=== PATIENT | male | born 1975 | race Caucasian/White ===

== ENCOUNTER 2018-07-30 13:44 | Inpatient (IN) ==
[2018-07-30] MEDS ORDERED: Morphine Inj 4 MG/ML Vial IV.PUSH ONE (13:56)
[2018-07-30] MEDS ORDERED: Sod Chloride 0.9% Inj 1,000 ML IV.SIG SCH (14:00)
--- NOTE | 2018-07-30 14:22 | ED ---
HPI General Chief Complaint: Fall Stated Complaint: Fall Time Seen by Provider: 07/30/18 13:56 Source: EMS Mode of arrival: EMS Limitations: other (Developmentally challenged.) History of Present Illness HPI Narrative: Patient is a 42-year-old male presenting to the emergency department for evaluation of right lower leg deformity after sustaining a mechanical fall. There is no head injury or loss of consciousness. Patient is developmentally challenged, he is grimacing pain, he states that "it hurts". complaint: fall Onset (ago): hour(s) Fall from: standing Fall witnessed: yes, by living facility staff Place fall occurred: home Loss of consciousness: none Prolonged down time: no Symptoms prior to fall: none Context: tripped/slipped Location of injury: other Location of injury - extremities: Right: lower leg (Obvious deformity.) Severity: severe Related Data Home Medications Medication Instructions Recorded Confirmed carbamazepine 200 mg PO BID 07/30/18 07/30/18 Allergies Allergy/AdvReac Type Severity Reaction Status Date / Time No Known Allergies Allergy Uncoded 08/30/16 10:50 Review of Systems ROS: all other systems reviewed are negative [facility] Medical History Medical History Cognitive developmental delay (Chronic) Medical history unknown (Inactive) Surgical history unknown (Inactive) Social History Social History Substance History: No History of Abuse Smoking Status: Never smoker How Often Do You Have a Drink Containing Alcohol: Never Recent Travel in [facility] within the Last 8 Weeks: No Recent Out of Country Travel within the Last 8 Weeks: No Immunization History Tetanus Immunization: Unsure Exam Narrative Exam Narrative: GENERAL: Well-developed, well-nourished, alert male. Appears uncomfortable, in no acute distress. SKIN: Focused skin assessment warm/dry. HEAD: Atraumatic. Normocephalic. EYES: Pupils equal and round. No scleral icterus. No injection or drainage. ENT: No nasal bleeding or discharge. Mucous membranes pink and moist. NECK: Trachea midline. No JVD. CARDIOVASCULAR: Regular rate and rhythm. No murmur appreciated. RESPIRATORY: No accessory muscle use. Clear to auscultation. Breath sounds equal bilaterally. GASTROINTESTINAL: Abdomen soft, non-tender, nondistended. Hepatic and splenic margins not palpable. MUSCULOSKELETAL: Obvious deformity to right lower leg just proximal to the ankle. Mild ecchymosis and edema noted. 2+ dorsalis pedal pulse. Brisk less than 3 second capillary refill. NEUROLOGICAL: Awake and alert. No obvious cranial nerve deficits. Motor grossly within normal limits. Normal speech. PSYCHIATRIC: Appropriate mood and affect; insight and judgment normal. Course Initial Documented Vital Signs Temperature 98.3 F 07/30/18 13:51 Pulse Rate 94 H 07/30/18 13:51 Respiratory Rate 20 07/30/18 13:51 Blood Pressure 161/84 H 07/30/18 13:51 Pulse Oximetry 99 07/30/18 13:51 Last Documented Vital Signs Temperature 98.3 F 07/30/18 13:51 Pulse Rate 94 H 07/30/18 13:51 Respiratory Rate 20 07/30/18 13:51 Blood Pressure 161/84 H 07/30/18 13:51 Pulse Oximetry 99 07/30/18 13:51 Medical Decision Making MDM Narrative Medical decision making narrative: Patient is a 42-year-old male presenting for evaluation of a deformity to his right lower leg after sustaining a mechanical fall. Patient is neurovascularly intact. Patient was given morphine for pain, imaging and labs ordered and pending. IV access was established, patient was placed on telemetry monitoring continuous pulse oximetry. X-ray shows fractures of the tibia and fibula. Discussed with Dr. Almanza recommended patient be placed in a long-leg splint and have extremity elevated. He will be taken to the OR tomorrow by either Dr. Almanza himself or by Dr. Salazar. Mother is at bedside and was advised on findings and plan of care. She is agreeable and her questions were answered. Medical Screen Exam Complete: Yes Emergency Medical Condition: Yes Differential Diagnosis Differential Diagnosis: Fracture versus contusion versus sprain versus strain versus other Lab Data Lab results reviewed: Yes I reviewed the patient's lab results. Result diagrams: 07/30/18 14:05 07/30/18 14:05 Lab Results 07/30/18 07/30/18 07/30/18 Range/Units 14:05 14:05 14:05 WBC 8.6 (4.0-11.0) th/mm3 RBC 4.66 (4.50-5.90) mil/mm3 Hgb 14.7 (13.0-17.0) gm/dL Hct 44.4 (39.0-51.0) % MCV 95.4 (80.0-100.0) fL MCH 31.6 (27.0-34.0) pg MCHC 33.1 (32.0-36.0) % RDW 13.5 (11.6-17.2) % Plt Count 276 (150-450) th/mm3 MPV 8.1 (7.0-11.0) fL Neut % (Auto) 83.5 H (16.0-70.0) % Lymph % (Auto) 9.9 (9.0-44.0) % Weber % (Auto) 6.1 (0.0-8.0) % Eos % (Auto) 0.2 (0.0-4.0) % Baso % (Auto) 0.3 (0.0-2.0) % Neut # (Auto) 7.1 (1.8-7.7) th/mm3 Lymph # (Auto) 0.8 L (1.0-4.8) th/mm3 Weber # (Auto) 0.5 (0.0-0.9) th/mm3 Eos # (Auto) 0.0 (0.0-0.4) th/mm3 Baso # (Auto) 0.0 (0.0-0.2) th/mm3 WBC Differential . Differential Comment Auto diff final PT 10.7 (9.8-11.6) sec INR 1.1 Ratio APTT 23.5 L (24.3-30.1) sec Sodium 142 (136-145) meq/L Potassium 3.8 (3.5-5.1) meq/L Chloride 105 (98-107) meq/L Carbon Dioxide 29.4 (21.0-32.0) meq/L Anion Gap 8 (5-15) meq/L BUN 12 (7-18) mg/dL Creatinine 1.25 (0.60-1.30) mg/dL Estimated GFR 63 L (>89) mL/min Random Glucose 169 H (74-106) mg/dL Calcium 8.5 (8.5-10.1) mg/dL Imaging Data Radiologist's impression: Tibia/Fibula X-Ray 07/30/18 13:56 CONCLUSION: Tibia and fibular fractures are noted. Discharge Plan Physicians Team ED Provider: Elodia Saeed ED Midlevel Provider: Niki Sanchez Primary Care Provider: UNKNOWN, Other Providers: Dio Romo Rxs /Orders / Referrals /Forms Prescriptions: No Action carbamazepine 200 mg Capsule, Er Multiphase 12 Hr 200 mg PO BID RF: 0 Status ED Status: With Doctor
[2018-07-30 14:44] LABS: Baso % (Auto) 0.3 % (0.0-2.0); Eos % (Auto) 0.2 % (0.0-4.0); Hematocrit 44.4 % (39.0-51.0); Hemoglobin 14.7 gm/dL (13.0-17.0); Lymph # (Auto) 0.8 th/mm3 (1.0-4.8); Lymph % (Auto) 9.9 % (9.0-44.0); Mean Corpuscular HGB Conc 33.1 % (32.0-36.0); Mean Corpuscular Hemoglobin 31.6 pg (27.0-34.0); Mean Corpuscular Volume 95.4 fL (80.0-100.0); Mean Platelet Volume 8.1 fL (7.0-11.0); Mono # (Auto) 0.5 th/mm3 (0.0-0.9); Mono % (Auto) 6.1 % (0.0-8.0); Neut # (Auto) 7.1 th/mm3 (1.8-7.7); Neut % (Auto) 83.5 % (16.0-70.0); Platelet Count 276 th/mm3 (150-450); Red Blood Count 4.66 mil/mm3 (4.50-5.90); Red Cell Distribution Width 13.5 % (11.6-17.2); White Blood Count 8.6 th/mm3 (4.0-11.0)
--- NOTE | 2018-07-30 14:44 | XR ---
EXAM DATE: 07/30/2018 2:33 PM EDT AGE/SEX: 42 years / Male INDICATIONS: Right distal tibia pain after trip and fall. CLINICAL DATA: This is the patient's initial encounter. Patient reports that signs and symptoms have been present for 1 day and indicates a pain score of 10/10. MEDICAL/SURGICAL HISTORY: . Previous left foot and ankle fractures. None. COMPARISON: No prior exams available for comparison. FINDINGS: There is a displaced comminuted oblique fracture through the distal tibial metaphysis with lateral di splacement of the distal fracture fragment one shaft diameter. In addition there is a proximal fibula r metaphyseal fracture anteriorly displaced. CONCLUSION: Tibia and fibular fractures are noted. Electronically signed by: Flako Frankel MD 07/30/2018 2:43 PM EDT
[2018-07-30 14:56] LABS: Activated Partial Thrombo Time 23.5 sec (24.3-30.1); INR 1.1 Ratio; Prothrombin Time 10.7 sec (9.8-11.6)
[2018-07-30 14:58] LABS: Calcium 8.5 mg/dL (8.5-10.1); Carbon Dioxide 29.4 meq/L (21.0-32.0); Potassium 3.8 meq/L (3.5-5.1)
[2018-07-30] MEDS ORDERED: Bisacodyl 10 MG Supp RECTAL PRN (15:37)
[2018-07-30] MEDS ORDERED: Morphine Inj 4 MG/ML Vial IV.PUSH PRN (15:41)
--- NOTE | 2018-07-30 15:51 | P.HPIM ---
History of Present Illness Service: [facility] Primary Care Physician: UNKNOWN History of Present Illness: This is a 42-year-old male with past medical history significant for epilepsy and cognitive developmental delay. Most of history obtained from mother who is present. Patient is unable to provide much of the history. Around 1400 today the patient was playing basketball with some kids in the [employer]. While playing he tripped on the sidewalk and rolled his ankle. He was noticed to have a deformed ankle shortly thereafter and he started feeling pain. He was placed in a splint and brought to the hospital via ambulance. Currently reports that his pain is quite tolerable. Denies any nausea vomiting. Right ankle is in a splint and already recent. No open wounds were noted. X-ray showed tib-fib fracture, and patient is scheduled for surgery with orthopedic surgery tomorrow. - Diagnosis (1) Tibia/fibula fracture (2) Epilepsy (3) Cognitive developmental delay Inpatient Certification: I certify that the inpatient services were ordered in accordance with Medicare regulations governing the order. 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 - Medical History Medical History: Medical History (Last Updated 07/30/18 @ 15:49 by Blayne Moore MD) Bilateral ankle fractures Cataract (lens) fragments in eye following cataract surgery, right eye Epilepsy Medical history unknown Surgical history unknown Cognitive developmental delay - Family History Family History: Family History (Last Updated 07/30/18 @ 15:50 by Blayne Moore MD) Mother Hypothyroidism HTN (hypertension) - Tobacco History Smoking Status: Never smoker - Alcohol History How Often Do You Have a Drink Containing Alcohol: Never - Substance Use History Substance History: No History of Abuse - Travel History Recent Travel in the [place] Within the Last 8 Weeks: No Recent Travel Out of the Country Within the Last 8 Weeks: No - Immunization History Tetanus Immunization: Unsure Medications and Allergies Active Medications: Active Medications Al Hydroxide/Mg Hydroxide (Milk Of Magnesia Liq) 30 ml PO Q12H PRN PRN Reason: Mild Constipation Bisacodyl (Dulcolax Supp) 10 mg RECTAL DAILY PRN PRN Reason: SEVERE CONSITIPATION Sodium Chloride (Ns Inj) 1,000 mls @ 0 mls/hr IV.SIG BOLUS [facility] [place] Last Admin: 07/30/18 14:15 Dose: 999 mls/hr Sodium Chloride (Ns Inj) 1,000 mls @ 75 mls/hr IV.CONT .[id number] [facility] Lactulose (Lactulose Liq) 30 ml PO DAILY PRN PRN Reason: SEVERE CONSITIPATION Morphine Sulfate (Morphine Inj) 2 mg IV.PUSH Q4H PRN PRN Reason: PAIN SCALE 6 TO 10 Ondansetron HCl (Zofran Inj) 4 mg IV.PUSH Q6H PRN PRN Reason: NAUSEA OR VOMITING Senna/Docusate Sodium (Gogo-Colace) 1 tab PO BID [facility] Sennosides (Senokot) 17.2 mg PO Q12H PRN PRN Reason: Moderate Constipation Sodium Chloride (Ns Flush) 2 ml IV.FLUSH PRN PRN PRN Reason: FLUSH AFTER USING IV ACCESS Allergies Allergy/AdvReac Type Severity Reaction Status Date / Time No Known Allergies Allergy Uncoded 08/30/16 10:50 Home Medications Medication Instructions Recorded Confirmed Type carbamazepine 200 mg PO BID 07/30/18 07/30/18 History Exam Vital signs: Vital Signs 07/30/18 13:51 Temperature 98.3 F Pulse Rate 94 H Respiratory Rate 20 Blood Pressure 161/84 H Pulse Oximetry 99 Intake & Output 07/29/18 07/30/18 07/30/18 18:59 06:59 18:59 Weight 77.111 kg - Constitutional no acute distress, thin, cooperative - Routine HEENT Exam Head: Present: normocephalic, atraumatic Eye: Present: EOMI, PERRL ENT: Present: mucous membranes moist, external ear normal, TM's clear bilaterally - Routine Neck Exam Present: supple, full ROM. Absent: JVD, lymphadenopathy - Routine Chest/Breast/Axilla Exam Chest wall: Absent: tenderness Axillae: Absent: lymphadenopathy - Routine Respiratory Exam Present: CTA bilaterally. Absent: accessory muscle use, wheezes, distant breath sounds - Routine Cardiovascular Exam Present: RRR - Routine Abdominal Exam Present: soft. Absent: tenderness, distended - Routine Extremities Exam Present: full ROM. Absent: cyanosis, clubbing, edema Comments: Right leg currently in soft splint. Patient is able to wiggle his toes. He has feeling in his toes. Toes are warm to palpation. - Routine Skin Exam Present: intact. Absent: wounds - Routine Neurological Exam Present: alert, CN II-XII intact. Absent: oriented X3 (Oriented to person, to place, but not to date), sensory deficit Results - Labs CBC & Chem 7: 07/30/18 14:05 07/30/18 14:05 Labs: Short CBC 07/30/18 Range/Units 14:05 WBC 8.6 (4.0-11.0) th/mm3 Hgb 14.7 (13.0-17.0) gm/dL Hct 44.4 (39.0-51.0) % Plt Count 276 (150-450) th/mm3 BMP 07/30/18 14:05 Sodium 142 Potassium 3.8 Chloride 105 Carbon Dioxide 29.4 BUN 12 Creatinine 1.25 Calcium 8.5 - Imaging Impressions Tibia/Fibula X-Ray 07/30/18 13:56 CONCLUSION: Tibia and fibular fractures are noted. Caprini VTE Risk Assessment Caprini VTE Risk Assessment: Moderate/High Risk (score >= 2) Caprini Risk Assessment Model: Point Value = 1 Point Value = 2 Point Value = 3 Point Value = 5 Age 41-60 Minor surgery BMI > 25 kg/m2 Swollen legs Varicose veins or History of unexplained or recurrent spontaneous Oral contraceptives or hormone replacement Sepsis (< 1 month) Serious lung disease, including pneumonia (< 1 month) Abnormal pulmonary function Acute myocardial infarction Congestive heart failure (< 1 month) History of inflammatory bowel disease Medical patient at bed rest Age 61-74 Arthroscopic surgery Major open surgery (> 45 min) Laparoscopic surgery (> 45 min) Malignancy Confined to bed (> 72 hours) Immobilizing plaster cast Central venous access Age >= 75 History of VTE Family history of VTE Factor V Leiden Prothrombin [id number] Lupus anticoagulant Anticardiolipin antibodies Elevated serum homocysteine Heparin-induced thrombocytopenia Other congenital or acquired thrombophilia Stroke (< 1 month) Elective arthroplasty Hip, pelvis, or leg fracture Acute spinal cord injury (< 1 month) Prophylaxis Regimen: Total Risk Factor Score Risk Level Prophylaxis Regimen 0-1 Low Early ambulation 2 Moderate Order ONE of the following: *Sequential Compression Device (SCD) *Heparin 5000 units SQ BID 3-4 Higher Order ONE of the following medications: *Heparin 5000 units SQ TID *Enoxaparin/Lovenox 40 mg SQ daily (WT < 150 kg, CrCl > 30 mL/min) *Enoxaparin/Lovenox 30 mg SQ daily (WT < 150 kg, CrCl > 10-29 mL/min) *Enoxaparin/Lovenox 30 mg SQ BID (WT < 150 kg, CrCl > 30 mL/min) AND/OR *Sequential Compression Device (SCD) 5 or more Highest Order ONE of the following medications: *Heparin 5000 units SQ TID (Preferred with Epidurals) *Enoxaparin/Lovenox 40 mg SQ daily (WT < 150 kg, CrCl > 30 mL/min) *Enoxaparin/Lovenox 30 mg SQ daily (WT < 150 kg, CrCl > 10-29 mL/min) *Enoxaparin/Lovenox 30 mg SQ BID (WT < 150 kg, CrCl > 30 mL/min) AND *Sequential Compression Device (SCD) Assessment and Plan - Assessment (1) Tibia/fibula fracture Code(s): S82.209A - Unspecified fracture of shaft of unspecified tibia, initial encounter for closed fracture; S82.409A - Unspecified fracture of shaft of unspecified fibula, initial encounter for closed fracture Status: Acute (2) Epilepsy Code(s): G40.909 - Epilepsy, unspecified, not intractable, without status epilepticus Status: Chronic (3) Cognitive developmental delay Code(s): F81.9 - Developmental disorder of scholastic skills, unspecified Status: Chronic - Plan This is a 42-year-old male with past medical history significant for epilepsy and cognitive developmental delay. Being admitted for tibia and fibula fracture of the right leg. 1. Tib-fib fracture -Orthopedic surgery consulted, recommendations appreciated, current plan for surgery tomorrow -N.p.o. after midnight -Pain control with morphine as needed -Remain in soft splint -Ice -Monitor lab -Monitor vitals 2. Epilepsy -Continue Tegretol 20 mg p.o. twice daily 3. Cognitive development of delay - precautions -Mother plans to stay with the patient and will be helpful asset with this patient DVT ppx with SCD no pharmacological prevention at this time due to plans for surgery in the a.m. Code Status: Full code Discussed Condition With: Discussed with mother, ED Discharge Planning: Likely home with possible need for home health (1) Tibia/fibula fracture Qualifiers: Encounter type: initial encounter Fracture type: closed Laterality: right Qualified Code(s): S82.201A - Unspecified fracture of shaft of right tibia, initial encounter for closed fracture; S82.401A - Unspecified fracture of shaft of right fibula, initial encounter for closed fracture (2) Epilepsy Qualifiers: Epilepsy type: unspecified Intractability: not intractable Status epilepticus: without status epilepticus Qualified Code(s): G40.909 - Epilepsy, unspecified, not intractable, without status epilepticus
[2018-07-30] MEDS: Sod Chloride 0.9% Inj 1,000 ML IV.CONT SCH (17:43)
[2018-07-30] MEDS: carBAMazepine 200 MG Tablet PO SCH (18:46)
[2018-07-30] MEDS: Senna/Docusate Sodium 8.6/50 MG Tablet PO SCH (22:00)
[2018-07-31] MEDS ORDERED: Chlorhexidine Gluconate 2% 1 Pack (2 Cloths) TOPICAL SCH (05:15)
[2018-07-31] MEDS ORDERED: Sodium Chlor 0.9% Inj 500 ML IV.SIG SCH (06:00)
[2018-07-31 06:02] LABS: Baso % (Auto) 0.3 % (0.0-2.0); Eos % (Auto) 0.2 % (0.0-4.0); Hematocrit 38.9 % (39.0-51.0); Hemoglobin 13.3 gm/dL (13.0-17.0); Lymph # (Auto) 0.9 th/mm3 (1.0-4.8); Lymph % (Auto) 9.7 % (9.0-44.0); Mean Corpuscular Hemoglobin 31.8 pg (27.0-34.0); Mean Corpuscular Volume 93.5 fL (80.0-100.0); Mean Platelet Volume 8.1 fL (7.0-11.0); Mono # (Auto) 0.9 th/mm3 (0.0-0.9); Mono % (Auto) 9.6 % (0.0-8.0); Neut # (Auto) 7.1 th/mm3 (1.8-7.7); Neut % (Auto) 80.2 % (16.0-70.0); Platelet Count 220 th/mm3 (150-450); Red Blood Count 4.16 mil/mm3 (4.50-5.90); Red Cell Distribution Width 13.3 % (11.6-17.2); White Blood Count 8.9 th/mm3 (4.0-11.0)
[2018-07-31 06:28] LABS: Alanine Aminotransferase 18 U/L (12-78); Albumin 3.3 g/dL (3.4-5.0); Anion Gap 7 meq/L (5-15); Aspartate Aminotransferase 14 U/L (15-37); Blood Urea Nitrogen 9 mg/dL (7-18); Calcium 8.2 mg/dL (8.5-10.1); Chloride 109 meq/L (98-107); Glomerular Filtration Rate Greater Than 89 mL/min (>89); Glucose,Random 102 mg/dL (74-106); Potassium 3.8 meq/L (3.5-5.1); Sodium 145 meq/L (136-145)
[2018-07-31 06:30] LABS: Alkaline Phosphatase 52 U/L (45-117); Total Protein 6.3 g/dL (6.4-8.2)
[2018-07-31] MEDS: Sod Chloride 0.9% Inj 1,000 ML IV.CONT SCH (07:18)
[2018-07-31] MEDS: Senna/Docusate Sodium 8.6/50 MG Tablet PO SCH ×2 (09:38→22:22)
[2018-07-31] MEDS: carBAMazepine 200 MG Tablet PO SCH ×2 (09:38→22:22)
[2018-07-31] MEDS ORDERED: Lidocaine PF 1% Inj 5 ML Syringe INFILTRATN ONE (10:45)
--- NOTE | 2018-07-31 13:03 | P.CONOP ---
[facility] Orthopedics Consult Note - [facility] Consult date: 07/31/18 Requesting physician: Seng Wolfe Consult reason: fracture Chief complaint: Leg Fractures Narrative: This is a 42-year-old male with past medical history significant for epilepsy and cognitive developmental delay. Most of history obtained from mother who is present. Patient is unable to provide much of the history. Around 1400 today the patient was playing basketball with some kids in the [employer]. While playing he tripped on the sidewalk and rolled his ankle. He was noticed to have a deformed ankle shortly thereafter and he started feeling pain. He was placed in a splint and brought to the hospital via ambulance. Currently reports that his pain is quite tolerable. Denies any nausea vomiting. Right ankle is in a splint and already recent. No open wounds were noted. X-ray showed tib-fib fracture. Review of Systems Constitutional: Denies body ache(s) Eyes: Denies blurry vision Ears, Nose, Mouth, and Throat: Denies abnormal hearing Cardiovascular: Denies chest pain Respiratory: Denies chest congestion Skin/Breast: Denies unusual bruising Neurologic: Reports abnormal speech, Reports abnormal walking, Reports behavioral changes Psychiatric: Denies anxiety PMFSH - History History Provided By: Patient, Family Member - Medical History Medical History: Medical History (Last Updated 07/30/18 @ 15:49 by Blayne Moore MD) Bilateral ankle fractures Cataract (lens) fragments in eye following cataract surgery, right eye Epilepsy Medical history unknown Surgical history unknown Cognitive developmental delay - Family History Family History: Family History (Last Updated 07/30/18 @ 15:50 by Blayne Moore MD) Mother Hypothyroidism HTN (hypertension) - Tobacco History Second Hand Smoke Exposure: No Tobacco Use In Past 30 Days: No Smoking Status: Never smoker - Alcohol History How Often Do You Have a Drink Containing Alcohol: Never - Substance Use History Substance History: No History of Abuse - Travel History Recent Travel in the [place] Within the Last 8 Weeks: No Recent Travel Out of the Country Within the Last 8 Weeks: No - Immunization History Tetanus Immunization: <5 Years Hx Influenza Vaccine This Season: No Medications and Allergies Active Medications: Active Medications Al Hydroxide/Mg Hydroxide (Milk Of Magnesia Liq) 30 ml PO Q12H PRN PRN Reason: Mild Constipation Bisacodyl (Dulcolax Supp) 10 mg RECTAL DAILY PRN PRN Reason: SEVERE CONSITIPATION Carbamazepine (Tegretol) 200 mg PO BID [facility] Last Admin: 07/31/18 09:38 Dose: Not Given Chlorhexidine Gluconate (Chlorhexidine 2% Cloth) 3 pack [employer] [facility] Stop: 08/03/18 05:14 Sodium Chloride (Ns Inj) 1,000 mls @ 0 mls/hr IV.SIG BOLUS [facility] Last Infusion: 07/31/18 07:20 Dose: Infused Sodium Chloride (Ns Inj) 1,000 mls @ 75 mls/hr IV.CONT .[id number] [facility] Last Infusion: 07/31/18 07:18 Dose: Infused Sodium Chloride (Ns Inj) 500 mls @ 30 mls/hr IV.SIG .Q10H [facility] Stop: 08/03/18 05:14 Lactated Ringer's (Lr 1000 Ml Inj) 1,000 mls @ 30 mls/hr IV.SIG .Q24H [facility] Stop: 08/03/18 05:14 Last Admin: 07/31/18 07:19 Dose: Not Given Lactulose (Lactulose Liq) 30 ml PO DAILY PRN PRN Reason: SEVERE CONSITIPATION Morphine Sulfate (Morphine Inj) 2 mg IV.PUSH Q4H PRN PRN Reason: PAIN SCALE 6 TO 10 Ondansetron HCl (Zofran Inj) 4 mg IV.PUSH Q6H PRN PRN Reason: NAUSEA OR VOMITING Povidone Iodine (Betadine 5% Antisepsis Kit) 1 applicatio EACH [employer] [facility] Stop: 08/03/18 05:14 Senna/Docusate Sodium (Gogo-Colace) 1 tab PO BID [facility] Last Admin: 07/31/18 09:38 Dose: Not Given Sennosides (Senokot) 17.2 mg PO Q12H PRN PRN Reason: Moderate Constipation Sodium Chloride (Ns Flush) 2 ml IV.FLUSH PRN PRN PRN Reason: FLUSH AFTER USING IV ACCESS Allergies Allergy/AdvReac Type Severity Reaction Status Date / Time DONUT FILLING Allergy Rash Uncoded 07/30/18 16:37 SALAMI Allergy Agitation Uncoded 07/30/18 16:37 SCALOPS Allergy Vomiting Uncoded 07/30/18 16:37 Home Medications Medication Instructions Recorded Confirmed Type carbamazepine 200 mg PO BID 07/30/18 07/30/18 History Exam Vital signs: Vital Signs 07/30/18 13:51 07/30/18 17:00 07/30/18 20:00 Temperature 98.3 F 98.8 F Pulse Rate 94 H 88 75 Respiratory Rate 20 18 18 Blood Pressure 161/84 H 140/80 121/71 Pulse Oximetry 99 98 96 07/30/18 23:30 07/31/18 00:00 07/31/18 04:00 Temperature 97.6 F 98.0 F Pulse Rate 71 78 Respiratory Rate 17 17 17 Blood Pressure 132/79 136/82 Pulse Oximetry 99 99 07/31/18 08:00 Temperature 97.4 F L Pulse Rate 77 Respiratory Rate 16 Blood Pressure 139/82 Pulse Oximetry 98 Intake & Output 07/30/18 07/31/18 07/31/18 18:59 06:59 18:59 Intake Total 1999 Output Total 250 / 250 Balance -250 / -250 1999 Weight 77.111 kg 66.2 kg Intake: IV 1999 NS Inj 1,000 ML @ 75 mls/hr IV. 1000 / 1000 CONT .[id number] [facility] Rx#:[id number] NS Inj 1,000 ML @ Wide Open IV. 1000 / 1000 SIG BOLUS [facility] Rx#:[id number] Output: Urine 250 / 250 Other: Weight On Admission 66.224 kg Narrative: HEENT: Normocephalic atraumatic pupils equal round reactive. NECK: Supple. No abnormal masses. Full range of motion. CHEST: Clear to auscultation with no rales or rhonchi's or wheezes. HEART: Regular rate and rhythm. No murmurs. ABDOMEN: Soft, nontender, no masses. Normal active bowel sounds. GENITOURINARY: Deferred MUSCULOSKELETAL: He is in a long-leg splint. Sensation is normal. Some chronic changes of his right foot are noted. This patient has developmental cognitive delay. His mother is at the bedside Results - Labs Result Diagrams: 07/31/18 04:39 07/31/18 04:39 Labs: Laboratory Results - last 24 hr 07/30/18 07/30/18 07/30/18 14:05 14:05 14:05 WBC 8.6 RBC 4.66 Hgb 14.7 Hct 44.4 MCV 95.4 MCH 31.6 MCHC 33.1 RDW 13.5 Plt Count 276 MPV 8.1 Neut % (Auto) 83.5 H Lymph % (Auto) 9.9 Ida % (Auto) 6.1 Eos % (Auto) 0.2 Baso % (Auto) 0.3 Neut # (Auto) 7.1 Lymph # (Auto) 0.8 L Ida # (Auto) 0.5 Eos # (Auto) 0.0 Baso # (Auto) 0.0 WBC Differential . Differential Comment Auto diff final PT 10.7 INR 1.1 APTT 23.5 L Sodium 142 Potassium 3.8 Chloride 105 Carbon Dioxide 29.4 Anion Gap 8 BUN 12 Creatinine 1.25 Estimated GFR 63 L Random Glucose 169 H Calcium 8.5 Total Bilirubin AST ALT Alkaline Phosphatase Total Protein Albumin 07/31/18 07/31/18 04:39 04:39 WBC 8.9 RBC 4.16 L Hgb 13.3 Hct 38.9 L MCV 93.5 MCH 31.8 MCHC 34.0 RDW 13.3 Plt Count 220 MPV 8.1 Neut % (Auto) 80.2 H Lymph % (Auto) 9.7 Ida % (Auto) 9.6 H Eos % (Auto) 0.2 Baso % (Auto) 0.3 Neut # (Auto) 7.1 Lymph # (Auto) 0.9 L Ida # (Auto) 0.9 Eos # (Auto) 0.0 Baso # (Auto) 0.0 WBC Differential . Differential Comment Auto diff final PT INR APTT Sodium 145 Potassium 3.8 Chloride 109 H Carbon Dioxide 29.0 Anion Gap 7 BUN 9 Creatinine 0.76 Estimated GFR Greater than 89 Random Glucose 102 Calcium 8.2 L Total Bilirubin 0.4 AST 14 L ALT 18 Alkaline Phosphatase 52 Total Protein 6.3 L Albumin 3.3 L - Diagnostic results Imaging: Impressions Tibia/Fibula X-Ray 07/30/18 13:56 CONCLUSION: Tibia and fibular fractures are noted. My review the x-rays and review of the radiologist interpretation shows evidence of a mid distal third fracture of the tibia, short spiral with a proximal fibula fracture. There is also evidence of a minimally displaced avulsion medial malleolus fracture Assessment and Plan - Problem List (1) Tibia/fibula fracture Code(s): S82.209A - Unspecified fracture of shaft of unspecified tibia, initial encounter for closed fracture; S82.409A - Unspecified fracture of shaft of unspecified fibula, initial encounter for closed fracture Status: Acute Qualifiers: Encounter type: initial encounter Fracture type: closed Laterality: right Qualified Code(s): S82.201A - Unspecified fracture of shaft of right tibia, initial encounter for closed fracture; S82.401A - Unspecified fracture of shaft of right fibula, initial encounter for closed fracture (2) Epilepsy Code(s): G40.909 - Epilepsy, unspecified, not intractable, without status epilepticus Status: Chronic Qualifiers: Epilepsy type: unspecified Intractability: not intractable Status epilepticus: without status epilepticus Qualified Code(s): G40.909 - Epilepsy , unspecified, not intractable, without status epilepticus (3) Cognitive developmental delay Code(s): F81.9 - Developmental disorder of scholastic skills, unspecified Status: Chronic - Assessment and Plan Right tibia and fibula fracture. Medial malleolus fracture, right ankle, nondisplaced. Developmental delay PLAN: Surgery: Open treatment internal fixation right tibia fracture with intramedullary iliana. Nonoperative treatment of the right ankle medial malleolus fracture. Consent: There are risks of this injury and surgery including infection, bleeding, loss of motion, loss of fixation, neurologic or vascular injury. The patient and the mother understands these issues and wished to proceed forward with surgery as outlined above
[2018-07-31] MEDS ORDERED: Temazepam 15 MG Capsule PO PRN (13:07)
[2018-07-31] MEDS ORDERED: Morphine Inj 4 MG/ML Vial IV.PUSH PRN (13:07)
--- NOTE | 2018-07-31 13:07 | P.OP ---
- Preoperative Diagnosis (1) Tibia/fibula fracture - Postoperative Diagnosis (1) Tibia/fibula fracture Date of procedure: 07/31/18 Procedure: Open treatment internal fixation right tibia fracture with intramedullary iliana [facility] Surgeon: Dio Romo MD Special Delivery Carrier: GIOVANNA Benavides Operation and Findings: EBL: 100 cc INDICATION: This patient is a 42-year-old developmentally delayed white male who injured his right tibia and ankle after a fall while playing basketball. He now presents for surgical treatment NOTE: Lesa Benavides PA-C was present for the entire surgical procedure as my loan officer assistant. In my medical opinion her skill and care was necessary for the proper management of this patient. PROCEDURE: The patient brought to the operating room and anesthetized in the supine position. The right leg was visualized under fluoroscopy. Antibiotics were given within an one hour time window and a timeout was done. The fracture was brought into reduced position. A percutaneous clamp was held distally. A transverse incision was made above the level of the patella and a longitudinal incision within the quadriceps tendon. A guide pin was placed down to the proper location. A soft tissue protector was utilized. The proximal tibia was opened. An intramedullary guide was advanced across the fracture and into the distal fragment. This was measured carefully and the canal reamed to 10 mm. A 9 mm titanium [employer]ynthes iliana was advanced distally. The fracture distally was reduced nicely. 2 transverse screws were placed proximally from medial to lateral and 2 transverse screws distally medial collateral followed by single anterior to posterior screw. The fracture reduced near anatomically in AP plane with mild displacement in the lateral plane. All wounds were irrigated copiously. The fascia was closed with interrupted #1 Vicryl suture, subcu tissue 2-0 Vicryl suture and skin with metallic melissa. A splint was applied. The patient was awakened and taken to the recovery room in satisfactory condition The wound was irrigated copiously and hemostasis was controlled. Intraoperative imaging showed anatomic reduction. Alignment was satisfactory. A posterior splint was fitted and applied. The patient was awakened and taken to recovery room satisfactory condition. The sponge count and needle count and sponge counts were all correct FINDINGS: There is an unstable fracture of the distal third of the tibia. The alignment post reduction was very satisfactory
[2018-07-31] MEDS ORDERED: *Meperidine Inj 25 MG/ML Vial PERIprocedural Use ONLY ONE (13:16)
[2018-07-31] MEDS ORDERED: Post-op Orders (for Pharmacy) OTHER STA (13:20)
[2018-07-31] MEDS ORDERED: fentaNYL Citrate Inj 100 MCG/2 ML Ampul ONE (13:29)
--- NOTE | 2018-07-31 13:34 | XR ---
EXAM DATE: 07/31/2018 1:19 PM EDT AGE/SEX: 42 years / Male INDICATIONS: ORIF right lower leg. CLINICAL DATA: This is the patient's initial encounter. Patient reports that signs and symptoms have been present for 1 day and indicates a pain score of Nonresponsive. MEDICAL/SURGICAL HISTORY: None. None. COMPARISON: No prior exams available for comparison. FINDINGS: There is an intramedullary iliana in place within the tibia. There is good alignment of the fracture fra gments. The hardware is grossly intact. There is good alignment at the knee and ankle joint. There ap pears to be a nondisplaced fracture involving the proximal fibula. CONCLUSION: Good position and alignment on this postoperative study. Electronically signed by: Prince Castellon MD 07/31/2018 1:33 PM EDT
--- NOTE | 2018-07-31 14:48 | XR ---
EXAM DATE: 07/31/2018 2:42 PM EDT AGE/SEX: 42 years / Male INDICATIONS: Post op right knee. CLINICAL DATA: This is the patient's initial encounter. Patient reports that signs and symptoms have been present for 1 day and indicates a pain score of Nonresponsive. MEDICAL/SURGICAL HISTORY: Non-responsive. Non-responsive. [place] [facility] [place]. . FINDINGS: Interval intramedullary iliana fixation of the right tibia which is partially imaged. Visualized portion s of the hardware appears intact and well-positioned. Redemonstration of slightly comminuted fracture s of the proximal fibula. Remaining osseous structures appear intact. Tibial plateau and patella appe ar intact. There is a suprapatellar joint effusion with postsurgical soft tissue features. CONCLUSION: 1. Status post tibial iliana fixation, as above. 2. Suprapatellar joint effusion and expected postoperative changes. Electronically signed by: Knigsley Sanz MD 07/31/2018 2:47 PM EDT
--- NOTE | 2018-07-31 16:10 | P.PN ---
Subjective Interval history: Patient is seen lying in bed. His mother is present. Patient does have developmental delay and does not answer questions in detail. He does tell me that he feels fine. Mother reports no adverse events overnight. She does not think her son is having significant pain. Physical Exam Vital signs: Vital Signs 07/30/18 17:00 07/30/18 20:00 07/30/18 23:30 Temperature 98.8 F Pulse Rate 88 75 Respiratory Rate 18 18 17 Blood Pressure 140/80 121/71 Pulse Oximetry 98 96 07/31/18 00:00 07/31/18 04:00 07/31/18 08:00 Temperature 97.6 F 98.0 F 97.4 F L Pulse Rate 71 78 77 Respiratory Rate 17 17 16 Blood Pressure 132/79 136/82 139/82 Pulse Oximetry 99 99 98 07/31/18 13:15 07/31/18 13:30 07/31/18 13:45 Temperature 97.5 F L Pulse Rate 91 H 85 77 Respiratory Rate 8 L 12 15 Blood Pressure 121/60 127/69 125/70 Pulse Oximetry 96 100 100 07/31/18 14:00 07/31/18 14:15 07/31/18 14:30 Temperature Pulse Rate 74 75 76 Respiratory Rate 16 16 16 Blood Pressure 130/74 136/79 131/79 Pulse Oximetry 97 98 99 07/31/18 14:35 Temperature 97.6 F Pulse Rate 80 Respiratory Rate 16 Blood Pressure 133/78 Pulse Oximetry 100 Intake & Output 07/30/18 07/31/18 07/31/18 18:59 06:59 18:59 Intake Total 2800 / 2800 Output Total 250 / 250 250 / 250 Balance -250 / -250 2550 / 2550 Weight 77.111 kg 66.2 kg Intake: IV 1999 / 1999 NS Inj 1,000 ML @ 75 mls/hr IV. 1000 / 1000 CONT .[id number] [facility] Rx#:[id number] NS Inj 1,000 ML @ Wide Open IV. 1000 / 1000 SIG BOLUS [facility] Rx#:[id number] Anesthesia Amount 800 / 800 Output: Urine 250 / 250 150 / 150 Estimated Blood Loss 100 / 100 Other: Weight On Admission 66.224 kg Narrative: GENERAL: Well-nourished, well-developed adult male in no obvious distress. SKIN: Warm and dry. HEAD: Atraumatic. Normocephalic. CARDIOVASCULAR: Regular rate and rhythm. RESPIRATORY: No accessory muscle use. Clear to auscultation. Breath sounds equal bilaterally. GASTROINTESTINAL: Abdomen soft, non-tender, non-distended. Positive bowel sounds. MUSCULOSKELETAL: Extremities without clubbing, cyanosis, or edema. No obvious deformities. Right leg and soft splint. Foot/toes warm and well-perfused. NEUROLOGICAL: Awake and alert. No obvious cranial nerve deficits. Motor grossly within normal limits. Results - Labs CBC & Chem 7: 07/31/18 04:39 07/31/18 04:39 Laboratory Results - last 24 hr 07/31/18 07/31/18 04:39 04:39 WBC 8.9 RBC 4.16 L Hgb 13.3 Hct 38.9 L MCV 93.5 MCH 31.8 MCHC 34.0 RDW 13.3 Plt Count 220 MPV 8.1 Neut % (Auto) 80.2 H Lymph % (Auto) 9.7 [place]asper % (Auto) 9.6 H Eos % (Auto) 0.2 Baso % (Auto) 0.3 Neut # (Auto) 7.1 Lymph # (Auto) 0.9 L [place]asper # (Auto) 0.9 Eos # (Auto) 0.0 Baso # (Auto) 0.0 WBC Differential . Differential Comment Auto diff final Sodium 145 Potassium 3.8 Chloride 109 H Carbon Dioxide 29.0 Anion Gap 7 BUN 9 Creatinine 0.76 Estimated GFR Greater than 89 Random Glucose 102 Calcium 8.2 L Total Bilirubin 0.4 AST 14 L ALT 18 Alkaline Phosphatase 52 Total Protein 6.3 L Albumin 3.3 L - Imaging Impressions Tibia/Fibula X-Ray 07/31/18 00:00 CONCLUSION: Good position and alignment on this postoperative study. Knee X-Ray 07/31/18 13:07 CONCLUSION: 1. Status post tibial iliana fixation, as above. 2. Suprapatellar joint effusion and expected postoperative changes. Assessment and Plan - Assessment (1) Tibia/fibula fracture Code(s): S82.209A - Unspecified fracture of shaft of unspecified tibia, initial encounter for closed fracture; S82.409A - Unspecified fracture of shaft of unspecified fibula, initial encounter for closed fracture Status: Acute (2) Epilepsy Code(s): G40.909 - Epilepsy, unspecified, not intractable, without status epilepticus Status: Chronic (3) Cognitive developmental delay Code(s): F81.9 - Developmental disorder of scholastic skills, unspecified Status: Chronic - Plan This is a 42-year-old male with past medical history significant for epilepsy and cognitive developmental delay. Being admitted for tibia and fibula fracture of the right leg. 1. Tib-fib fracture -Orthopedic surgery consulted, recommendations appreciated, current plan for surgery today -N.p.o. -Pain control with morphine as needed -Remain in soft splint -Ice -Monitor lab -Monitor vitals 2. Epilepsy -Continue Tegretol 20 mg p.o. twice daily 3. Cognitive development of delay -Sundowning precautions -Mother plans to stay with the patient and will be helpful asset with this patient DVT ppx with SCD no pharmacological prevention at this time due to plans for surgery in the a.m. Code Status: Full code Discussed Condition With: Discussed with mother, nurse Discharge Planning: Likely home with possible need for home health. Mother is able to provide care however she is also suffering from a recent pelvic fracture and has limited strength and mobility. (1) Tibia/fibula fracture Qualifiers: Encounter type: initial encounter Fracture type: closed Laterality: right Qualified Code(s): S82.201A - Unspecified fracture of shaft of right tibia, initial encounter for closed fracture; S82.401A - Unspecified fracture of shaft of right fibula, initial encounter for closed fracture (2) Epilepsy Qualifiers: Epilepsy type: unspecified Intractability: not intractable Status epilepticus: without status epilepticus Qualified Code(s): G40.909 - Epilepsy, unspecified, not intractable, without status epilepticus
[2018-07-31] MEDS: Multivitamin/Minerals Therapeutic Tablet PO SCH (22:22)
--- NOTE | 2018-08-01 08:07 | P.PNOP ---
Subjective Interval history: Doing well. Mother at bedside. Mentally challenged Physical Exam Vital signs: Vital Signs 07/31/18 13:15 07/31/18 13:30 07/31/18 13:45 Temperature 97.5 F L Pulse Rate 91 H 85 77 Respiratory Rate 8 L 12 15 Blood Pressure 121/60 127/69 125/70 Pulse Oximetry 96 100 100 07/31/18 14:00 07/31/18 14:15 07/31/18 14:30 Temperature Pulse Rate 74 75 76 Respiratory Rate 16 16 16 Blood Pressure 130/74 136/79 131/79 Pulse Oximetry 97 98 99 07/31/18 14:35 07/31/18 16:00 07/31/18 20:00 Temperature 97.6 F 97.7 F 98.1 F Pulse Rate 80 87 80 Respiratory Rate 16 16 17 Blood Pressure 133/78 141/77 H 142/74 H Pulse Oximetry 100 99 99 08/01/18 00:00 08/01/18 04:00 Temperature 97.9 F 98.5 F Pulse Rate 91 H 75 Respiratory Rate 16 15 Blood Pressure 124/68 138/98 H Pulse Oximetry 98 98 Intake & Output 07/31/18 08/01/18 08/01/18 18:59 06:59 18:59 Intake Total 3280 / 3280 1100 / 1100 Output Total 750 / 750 Balance 2530 / 2530 1100 / 1100 Weight 66.3 kg Intake: IV 2000 / 2000 1100 / 1100 LR 1000 mL Inj 1,000 ML @ 80 800 / 800 mls/hr IV.CONT .[id number] [facility] Rx# :[id number] NS Inj 1,000 ML @ 75 mls/hr IV. 1000 / 1000 CONT .[id number] [facility] Rx#:[id number] NS Inj 1,000 ML @ Wide Open IV. 1000 / 1000 SIG BOLUS [facility] Rx#:[id number] Ancef Inj 1,000 MG In NS Inj 300 / 300 100 ML @ 200 mls/hr IV.SIG Q6H [facility] Rx#:[id number] Oral 480 / 480 Anesthesia Amount 800 / 800 Output: Urine 650 / 650 Estimated Blood Loss 100 / 100 Other: # Voids 5 Date of Last Bowel Movement 07/30/18 Narrative: Right leg in a fracture walker. Bandage in place and dry. Neuro exam normal. No significant swelling Results - Labs CBC & Chem 7: 07/31/18 04:39 07/31/18 04:39 - Imaging Impressions Tibia/Fibula X-Ray 07/31/18 00:00 CONCLUSION: Good position and alignment on this postoperative study. Knee X-Ray 07/31/18 13:07 CONCLUSION: 1. Status post tibial iliana fixation, as above. 2. Suprapatellar joint effusion and expected postoperative changes. Assessment and Plan - Problem List (1) Tibia/fibula fracture Code(s): S82.209A - Unspecified fracture of shaft of unspecified tibia, initial encounter for closed fracture; S82.409A - Unspecified fracture of shaft of unspecified fibula, initial encounter for closed fracture Status: Acute Qualifiers: Encounter type: initial encounter Fracture type: closed Laterality: right Qualified Code(s): S82.201A - Unspecified fracture of shaft of right tibia, initial encounter for closed fracture; S82.401A - Unspecified fracture of shaft of right fibula, initial encounter for closed fracture (2) Epilepsy Code(s): G40.909 - Epilepsy, unspecified, not intractable, without status epilepticus Status: Chronic Qualifiers: Epilepsy type: unspecified Intractability: not intractable Status epilepticus: without status epilepticus Qualified Code(s): G40.909 - Epilepsy , unspecified, not intractable, without status epilepticus (3) Cognitive developmental delay Code(s): F81.9 - Developmental disorder of scholastic skills, unspecified Status: Chronic - Assessment and Plan Right tibia and fibula fracture. Medial malleolus fracture, right ankle, nondisplaced. Developmental delay Surgery: Open treatment internal fixation right tibia fracture with intramedullary iliana: POD#1 PLAN: Nonweightbearing right leg. Continue with present splint. Discharge to home versus SNF. Mother wants him to come home, but I am uncertain that he will be able to follow nonweightbearing status. Alcohol dressing change daily right leg. Aspirin 81 mg twice daily for 30 days. Pitts for pain. Medications on discharge per admitting team. [id number] form filled out Follow-up in 2 weeks. Stable orthopedically
[2018-08-01] MEDS: Multivitamin/Minerals Therapeutic Tablet PO SCH ×2 (10:06→21:57)
[2018-08-01] MEDS: carBAMazepine 200 MG Tablet PO SCH ×2 (10:06→21:57)
[2018-08-01] MEDS: Senna/Docusate Sodium 8.6/50 MG Tablet PO SCH ×2 (10:06→21:58)
--- NOTE | 2018-08-01 11:18 | XR ---
EXAM DATE: 08/01/2018 11:07 AM EDT AGE/SEX: 42 years / Male INDICATIONS: Pain in right hand, first digit, near distal phalangeal joint. states paronychia. CLINICAL DATA: This is the patient's initial encounter. Patient reports that signs and symptoms have been present for 4 - 6 days and indicates a pain score of 5/10. MEDICAL/SURGICAL HISTORY: None. None. COMPARISON: No prior exams available for comparison. FINDINGS: Bony structures are intact and in normal alignment. Joints are intact without dislocation or signifi cant arthropathy. Osseous density is normal. Soft tissues are unremarkable. No radiopaque foreign bodies seen. CONCLUSION: No evidence of recent bony injury. Electronically signed by: Flako Frankel MD 08/01/2018 11:17 AM EDT
--- NOTE | 2018-08-01 17:02 | P.PN ---
Subjective Interval history: Patient is seen lying in bed. Mother is present. He tells me that he feels good and that his leg is not hurting. He does complain that his right index finger hurts. His mother believes that he injured it when he fell. She denies any other adverse events and has no other new concerns. Physical Exam Vital signs: Vital Signs 07/31/18 20:00 08/01/18 00:00 08/01/18 04:00 Temperature 98.1 F 97.9 F 98.5 F Pulse Rate 80 91 H 75 Respiratory Rate 17 16 15 Blood Pressure 142/74 H 124/68 138/98 H Pulse Oximetry 99 98 98 08/01/18 08:00 08/01/18 12:00 08/01/18 16:00 Temperature 97.9 F 98.1 F 99.5 F Pulse Rate 86 85 95 H Respiratory Rate 18 20 18 Blood Pressure 139/79 134/78 156/85 H Pulse Oximetry 98 99 97 Intake & Output 07/31/18 08/01/18 08/01/18 18:59 06:59 18:59 Intake Total 3280 / 3280 1100 / 1100 Output Total 750 / 750 Balance 2530 / 2530 1100 / 1100 Weight 66.3 kg Intake: IV 1999 / 1999 1100 / 1100 LR 1000 mL Inj 1,000 ML @ 80 800 / 800 mls/hr IV.CONT .[id number] [facility] Rx# :[id number] NS Inj 1,000 ML @ 75 mls/hr IV. 1000 / 1000 CONT .[id number] [facility] Rx#:[id number] NS Inj 1,000 ML @ Wide Open IV. 1000 / 1000 SIG BOLUS [facility] Rx#:[id number] Ancef Inj 1,000 MG In NS Inj 300 / 300 100 ML @ 200 mls/hr IV.SIG Q6H [facility] Rx#:[id number] Oral 480 / 480 Anesthesia Amount 800 / 800 Output: Urine 650 / 650 Estimated Blood Loss 100 / 100 Other: # Voids 5 Date of Last Bowel Movement 07/30/18 Narrative: GENERAL: Well-nourished, well-developed adult male in no obvious distress. SKIN: Warm and dry. HEAD: Atraumatic. Normocephalic. CARDIOVASCULAR: Regular rate and rhythm. RESPIRATORY: No accessory muscle use. Clear to auscultation. Breath sounds equal bilaterally. GASTROINTESTINAL: Abdomen soft, non-tender, non-distended. Positive bowel sounds. MUSCULOSKELETAL: Extremities without clubbing, cyanosis, or edema. No obvious deformities. Right leg in boot. Foot/toes warm and well-perfused. Right index finger erythemic with swelling in distal joint. Small collection of pus in nail fold. Very tender. Warm to touch. NEUROLOGICAL: Awake and alert. No obvious cranial nerve deficits. Motor grossly within normal limits. Mental: Developmental delay; poor historian. Results - Labs CBC & Chem 7: 07/31/18 04:39 07/31/18 04:39 - Imaging Impressions Finger X-Ray 08/01/18 00:00 CONCLUSION: No evidence of recent bony injury. Assessment and Plan - Assessment (1) Tibia/fibula fracture Code(s): S82.209A - Unspecified fracture of shaft of unspecified tibia, initial encounter for closed fracture; S82.409A - Unspecified fracture of shaft of unspecified fibula, initial encounter for closed fracture Status: Acute (2) Epilepsy Code(s): G40.909 - Epilepsy, unspecified, not intractable, without status epilepticus Status: Chronic (3) Cognitive developmental delay Code(s): F81.9 - Developmental disorder of scholastic skills, unspecified Status: Chronic (4) Paronychia of right index finger Code(s): L03.011 - Cellulitis of right finger Status: Acute - Plan This is a 42-year-old male with past medical history significant for epilepsy and cognitive developmental delay. Being admitted for tibia and fibula fracture of the right leg. 1. Tib-fib fracture -Orthopedic surgery consulted, recommendations appreciated, current plan for surgery today -N.p.o. -Pain control with morphine as needed -Remain in soft splint -Ice -Monitor lab -Monitor vitals 2. Epilepsy -Continue Tegretol 20 mg p.o. twice daily 3. Cognitive development of delay - precautions -Mother plans to stay with the patient and will be helpful asset with this patient 4. Paronychia -Right index finger; hand surgery consulted -Bactrim DS for 7 days -X-ray ordered to rule out injury or foreign body due to recent fall on that side. DVT ppx with SCD Code Status: Full code Discussed Condition With: Discussed with mother, nurse Discharge Planning: Surgery has recommended rehab. Appreciate case management assistance. (1) Tibia/fibula fracture Qualifiers: Encounter type: initial encounter Fracture type: closed Laterality: right Qualified Code(s): S82.201A - Unspecified fracture of shaft of right tibia, initial encounter for closed fracture; S82.401A - Unspecified fracture of shaft of right fibula, initial encounter for closed fracture (2) Epilepsy Qualifiers: Epilepsy type: unspecified Intractability: not intractable Status epilepticus: without status epilepticus Qualified Code(s): G40.909 - Epilepsy, unspecified, not intractable, without status epilepticus
[2018-08-02] MEDS: carBAMazepine 200 MG Tablet PO SCH (09:26)
[2018-08-02] MEDS: Senna/Docusate Sodium 8.6/50 MG Tablet PO SCH (09:26)
[2018-08-02] MEDS: Multivitamin/Minerals Therapeutic Tablet PO SCH (09:26)
--- NOTE | 2018-08-02 12:19 | P.PN ---
Subjective Interval history: Patient is seen sitting up in bed. He tells me that his finger feels much better. His ankle is not hurting him. He would like to "get out of here". Mother is at bedside and reports no adverse incidents and no new concerns. Physical Exam Vital signs: Vital Signs 08/01/18 12:00 08/01/18 16:00 08/01/18 20:00 Temperature 98.1 F 99.5 F 98.7 F Pulse Rate 85 95 H 95 H Respiratory Rate 20 18 16 Blood Pressure 134/78 156/85 H 139/74 Pulse Oximetry 99 97 98 08/02/18 00:00 08/02/18 04:00 08/02/18 08:00 Temperature 97.3 F L 97.1 F L 98.8 F Pulse Rate 87 96 H 90 Respiratory Rate 16 16 16 Blood Pressure 131/75 139/78 139/81 Pulse Oximetry 98 99 98 Intake & Output 08/01/18 08/02/18 08/02/18 18:59 06:59 18:59 Intake Total 480 / 480 Balance 480 / 480 Intake: Oral 480 / 480 Other: # Voids 5 Date of Last Bowel Movement 08/01/18 08/01/18 Narrative: GENERAL: Well-nourished, well-developed adult male in no obvious distress. SKIN: Warm and dry. HEAD: Atraumatic. Normocephalic. CARDIOVASCULAR: Regular rate and rhythm. RESPIRATORY: No accessory muscle use. Clear to auscultation. Breath sounds equal bilaterally. GASTROINTESTINAL: Abdomen soft, non-tender, non-distended. Positive bowel sounds. MUSCULOSKELETAL: Extremities without clubbing, cyanosis, or edema. No obvious deformities. Right leg in boot. Foot/toes warm and well-perfused. Right index finger erythemic with swelling in distal joint. s/p unroofing; no drainage noted. Very tender. NEUROLOGICAL: Awake and alert. No obvious cranial nerve deficits. Motor grossly within normal limits. Mental: Developmental delay; poor historian. Results - Labs CBC & Chem 7: 07/31/18 04:39 07/31/18 04:39 Assessment and Plan - Assessment (1) Tibia/fibula fracture Code(s): S82.209A - Unspecified fracture of shaft of unspecified tibia, initial encounter for closed fracture; S82.409A - Unspecified fracture of shaft of unspecified fibula, initial encounter for closed fracture Status: Acute (2) Epilepsy Code(s): G40.909 - Epilepsy, unspecified, not intractable, without status epilepticus Status: Chronic (3) Cognitive developmental delay Code(s): F81.9 - Developmental disorder of scholastic skills, unspecified Status: Chronic (4) Paronychia of right index finger Code(s): L03.011 - Cellulitis of right finger Status: Acute - Plan This is a 42-year-old male with past medical history significant for epilepsy and cognitive developmental delay. Being admitted for tibia and fibula fracture of the right leg. 1. Status post tibial iliana fixation 07/31 -Orthopedic surgery consulted Per ortho note: Nonweightbearing right leg; Continue with present splint; Alcohol dressing change daily right leg. Aspirin 81 mg twice daily for 30 days.; [place] for pain; Follow-up in 2 weeks. 2. Epilepsy -Continue Tegretol 20 mg p.o. twice daily 3. Cognitive development of delay -own precautions -Mother plans to stay with the patient and will be helpful asset with this patient 4. Paronychia -Right index finger; hand surgery evaluated and unroofed on 08/01/18 -Bactrim DS for 7 days - started 08/01 -X-ray ordered to rule out injury or foreign body due to recent fall on that side -x-ray negative DVT ppx with SCD Code Status: Full code Discussed Condition With: Discussed with mother, nurse Discharge Planning: Surgery has recommended rehab. Appreciate case management assistance. (1) Tibia/fibula fracture Qualifiers: Encounter type: initial encounter Fracture type: closed Laterality: right Qualified Code(s): S82.201A - Unspecified fracture of shaft of right tibia, initial encounter for closed fracture; S82.401A - Unspecified fracture of shaft of right fibula, initial encounter for closed fracture (2) Epilepsy Qualifiers: Epilepsy type: unspecified Intractability: not intractable Status epilepticus: without status epilepticus Qualified Code(s): G40.909 - Epilepsy, unspecified, not intractable, without status epilepticus
--- NOTE | 2018-08-02 13:11 | P.DS ---
Date of admission: 07/30/18 15:29 Primary care physician: UNKNOWN Attending physician on discharge: Juan Alberto Oconnell Anticipated date of discharge: 08/02/18 Brief History from admission: This is a 42-year-old male with past medical history significant for epilepsy and cognitive developmental delay. Most of history obtained from mother who is present. Patient is unable to provide much of the history. Around 1400 today the patient was playing basketball with some kids in the [employer]. While playing he tripped on the sidewalk and rolled his ankle. He was noticed to have a deformed ankle shortly thereafter and he started feeling pain. He was placed in a splint and brought to the hospital via ambulance. Currently reports that his pain is quite tolerable. Denies any nausea vomiting. Right ankle is in a splint and already recent. No open wounds were noted. X-ray showed tib-fib fracture, and patient is scheduled for surgery with orthopedic surgery tomorrow. DS: Diagnosis - Discharge Diagnosis (1) Tibia/fibula fracture Status: Acute (2) Epilepsy Status: Chronic (3) Cognitive developmental delay Status: Chronic (4) Paronychia of right index finger Status: Acute DS: Summary Hospital Course: This is a 42-year-old male with past medical history significant for epilepsy and cognitive developmental delay. Being admitted for tibia and fibula fracture of the right leg which [place] sustained [place]. Status post tibial iliana fixation 07/31. Per ortho pt is to be nonweightbearing right leg; Continue with present splint; Alcohol dressing change daily right leg. Aspirin 81 mg twice daily for 30 days.; [place] for pain; Follow-up in 2 weeks. After admission he was also noted to have paronychia in Right index finger. Hand surgery evaluated and unroofed on 08/01/18. Ordered Bactrim DS for 7 days - started 08/01. X-ray was ordered to rule out injury or foreign body due to recent fall on that side -x-ray negative. - Time Spent with Patient Total time spent providing and/or coordinating discharge services: Less than 30 minutes - Quality: VTE Deep Vein Thrombosis/Pulmonary Embolism Present on Admission: No Exam Vital signs: Vital Signs 08/01/18 16:00 08/01/18 20:00 08/02/18 00:00 Temperature 99.5 F 98.7 F 97.3 F L Pulse Rate 95 H 95 H 87 Respiratory Rate 18 16 16 Blood Pressure 156/85 H 139/74 131/75 Pulse Oximetry 97 98 98 08/02/18 04:00 08/02/18 08:00 08/02/18 12:00 Temperature 97.1 F L 98.8 F 97.9 F Pulse Rate 96 H 90 108 H Respiratory Rate 16 16 16 Blood Pressure 139/78 139/81 136/80 Pulse Oximetry 99 98 97 Intake & Output 08/01/18 08/02/18 08/02/18 18:59 06:59 18:59 Intake Total 480 / 480 Balance 480 / 480 Intake: Oral 480 / 480 Other: # Voids 5 Date of Last Bowel Movement 08/01/18 08/01/18 Narrative: GENERAL: Well-nourished, well-developed adult male in no obvious distress. SKIN: Warm and dry. HEAD: Atraumatic. Normocephalic. CARDIOVASCULAR: Regular rate and rhythm. RESPIRATORY: No accessory muscle use. Clear to auscultation. Breath sounds equal bilaterally. GASTROINTESTINAL: Abdomen soft, non-tender, non-distended. Positive bowel sounds. MUSCULOSKELETAL: Extremities without clubbing, cyanosis, or edema. No obvious deformities. Right leg in boot. Foot/toes warm and well-perfused. Right index finger erythemic with swelling in distal joint. s/p unroofing; no drainage noted. Very tender. NEUROLOGICAL: Awake and alert. No obvious cranial nerve deficits. Motor grossly within normal limits. Mental: Developmental delay; poor historian. Results Procedures completed during hospitalization: tibial iliana fixation 07/31 - Impressions ITS Impressions Tibia/Fibula X-Ray 07/31/18 00:00 CONCLUSION: Good position and alignment on this postoperative study. Knee X-Ray 07/31/18 13:07 CONCLUSION: 1. Status post tibial iliana fixation, as above. 2. Suprapatellar joint effusion and expected postoperative changes. Finger X-Ray 08/01/18 00:00 CONCLUSION: No evidence of recent bony injury. Discharge Plan - Discharge Disposition Patient Disposition: [facility] Inpatient - Discharge Condition Condition: Stable - Discharge Order Discharge Orders: Discharge Order (Routine); Ordered 08/02/18 Ordered By: Courtney Shelley - Physicians Team Primary Care Provider: UNKNOWN, Attending Provider: Juan Alberto Oconnell Other Providers: Dio Romo MD ; Jerry Albright MD
--- NOTE | 2018-08-02 13:41 | P.PNOP ---
Subjective Interval history: Open treatment internal fixation right tibia fracture with intramedullary iliana: POD#2 Pt awake and alert. Pt wishes to be d/c to home but mother and orthopedics agrees rehab facility would be safest. Pain well controlled. Feels ready d/c today. Physical Exam Vital signs: Vital Signs 08/01/18 16:00 08/01/18 20:00 08/02/18 00:00 Temperature 99.5 F 98.7 F 97.3 F L Pulse Rate 95 H 95 H 87 Respiratory Rate 18 16 16 Blood Pressure 156/85 H 139/74 131/75 Pulse Oximetry 97 98 98 08/02/18 04:00 08/02/18 08:00 08/02/18 12:00 Temperature 97.1 F L 98.8 F 97.9 F Pulse Rate 96 H 90 108 H Respiratory Rate 16 16 16 Blood Pressure 139/78 139/81 136/80 Pulse Oximetry 99 98 97 Intake & Output 08/01/18 08/02/18 08/02/18 18:59 06:59 18:59 Intake Total 480 / 480 Balance 480 / 480 Intake: Oral 480 / 480 Other: # Voids 5 Date of Last Bowel Movement 08/01/18 08/01/18 Narrative: RLE: Dressing dry and intact. Fracture boot in place. Tender to palpation with mild swelling around incision site. Freely able to move distal digits. No calf pain. Negative Yassine's sign. Good cap refill. 2+ pedal pulses. Neurovascular intact. Results - Labs CBC & Chem 7: 07/31/18 04:39 07/31/18 04:39 - Procedures tibial iliana fixation 07/31 Assessment and Plan - Problem List (1) Tibia/fibula fracture Code(s): S82.209A - Unspecified fracture of shaft of unspecified tibia, initial encounter for closed fracture; S82.409A - Unspecified fracture of shaft of unspecified fibula, initial encounter for closed fracture Status: Acute Qualifiers: Encounter type: initial encounter Fracture type: closed Laterality: right Qualified Code(s): S82.201A - Unspecified fracture of shaft of right tibia, initial encounter for closed fracture; S82.401A - Unspecified fracture of shaft of right fibula, initial encounter for closed fracture (2) Epilepsy Code(s): G40.909 - Epilepsy, unspecified, not intractable, without status epilepticus Status: Chronic Qualifiers: Epilepsy type: unspecified Intractability: not intractable Status epilepticus: without status epilepticus Qualified Code(s): G40.909 - Epilepsy , unspecified, not intractable, without status epilepticus (3) Cognitive developmental delay Code(s): F81.9 - Developmental disorder of scholastic skills, unspecified Status: Chronic - Assessment and Plan Right tibia and fibula fracture. Medial malleolus fracture, right ankle, nondisplaced. Developmental delay Surgery: Open treatment internal fixation right tibia fracture with intramedullary iliana: POD#2 PLAN: Nonweightbearing right leg. Continue with walking boot Discharge to home versus SNF. Mother wants him to come home, but I am uncertain that he will be able to follow nonweightbearing status. Ortho rec. [facility] as it would be beneficial for pt and his medical comorbidities/social situation. Mother agrees. Alcohol dressing change daily right leg. Aspirin 81 mg twice daily for 30 days. [place] for pain. Medications on discharge per admitting team. [id number] form filled out Follow-up in 2 weeks. Clear for d/c from orthopedic standpoint
== END 2018-08-02 17:01 ==
LOC: NEPC 13:44 → NEDA 15:29 → N06 19:40
PROVIDERS: ADMIT Family Medicine; ATTEND Family Medicine